=== PATIENT | female | born 1965 | race Caucasian/White ===

== ENCOUNTER → 2017-02-14 | Outpatient (CLI) | payer BC ==
[~2017-02-14] MED LIST: ALAVERT10 M1 PO; ATOXIMETIN-B1 CAP PO; ENABLEX7.5 MG PO; JOLESSA 30 MCG-1 TAB PO; NORCO 325 MG-51 TAB PO; ROLAIDS220 MG PO; SINGULAIR10 MG PO
== END ==
LOC: MC.RAD 09:09
DX: Z12.31 Encounter for screening mammogram for malignant neoplasm of breast (principal)

== ENCOUNTER → 2017-02-18 | Outpatient (CLI) | payer BC | LOC: MC.RAD 08:24 | DX: N63 Unspecified lump in breast (principal); N60.01 Solitary cyst of right breast ==

== ENCOUNTER → 2018-02-16 | Outpatient (CLI) | payer BC | LOC: MC.RAD 10:00 | DX: Z12.31 Encounter for screening mammogram for malignant neoplasm of breast (principal) ==

== ENCOUNTER → 2019-03-06 | Outpatient (CLI) | payer BC | LOC: MC.RAD 13:45 | DX: Z12.31 Encounter for screening mammogram for malignant neoplasm of breast (principal); Z90.10 Acquired absence of unspecified breast and nipple ==

== ENCOUNTER → 2019-12-04 | Outpatient (CLI) | payer BC | LOC: COL.VAS 13:15 | DX: M79.89 Other specified soft tissue disorders (principal); Z86.718 Personal history of other venous thrombosis and embolism ==

== ENCOUNTER → 2020-04-11 | Outpatient (CLI) | payer BC | LOC: MC.RAD 09:15 | DX: Z12.31 Encounter for screening mammogram for malignant neoplasm of breast (principal) ==

== ENCOUNTER 2021-02-10 06:56 | Day surgery (SDC) | payer BC ==
[~2021-02-10] VITALS: Ht 175.3 cm; Wt 62.3 kg
[2021-02-10] MEDS ORDERED: LIALDA 1.2 GM1.2 GM PO (07:48)
[2021-02-10] MEDS ORDERED: SYNTHROID0.05 MG/TA PO (07:48)
[2021-02-10] MEDS ORDERED: PEPCID 20MG TAB20 MG PO (07:50)
[2021-02-10] MEDS ORDERED: FLORAJEN A20 Billion PO (07:52)
[2021-02-10] MEDS ORDERED: CLARITIN-D 10 M1 T24 PO (07:52)
[2021-02-10] MEDS ORDERED: VITAMIN D31000 I1 PO (07:53)
[2021-02-10] MEDS ORDERED: VTAMINC250TA PO (07:54)
[2021-02-10] MEDS ORDERED: FLONASE SENSIM9.9 ML NS (07:55)
[2021-02-10 08:16] VITALS: BP 105/83; PULSE 81; TEMP 98.2
[2021-02-10] MEDS ORDERED: PROTONIX 40MG T40 MG PO (09:09)
[2021-02-10 09:15] VITALS: BP 94/61; PULSE 83; TEMP 97.4
[2021-02-10 09:30] VITALS: BP 103/75; PULSE 65
[2021-02-10 09:45] VITALS: BP 91/70; PULSE 64
--- NOTE | 2021-02-10 09:55 | NUR ---
0915 Pt returns from endo procedure via cart and COT[employer] Anton assist. Pt ambulates from cart to recliner with RN assist. Monitors on and alarms set. Call light within reach. Pt's in room. Pt alert and oriented. Pt denies pain and nausea. Pt requests water and crackers. 0930 Pt taking food and drink well. No complaints stated. 0950 Discharge instructions given to pt and . All questions answered to their satisfaction. Handed to them are a thank you card and discharge information. 0955 Pt transferred out of hospital via wheelchair and [place] assist to private vehicle driven by .
== END 2021-02-10 09:55 | disposition home or self-care (01) ==
LOC: SDCO 06:56
DX: K51.30 Ulcerative (chronic) rectosigmoiditis without complications (principal); K22.2 Esophageal obstruction; K29.30 Chronic superficial gastritis without bleeding; K21.00 Gastro-esophageal reflux disease with esophagitis, without bleeding; K26.9 Duodenal ulcer, unspecified as acute or chronic, without hemorrhage or perforation; J45.909 Unspecified asthma, uncomplicated; I82.409 Acute embolism and thrombosis of unspecified deep veins of unspecified lower extremity; E03.9 Hypothyroidism, unspecified; Z20.822 Contact with and (suspected) exposure to COVID-19; Z79.890 Hormone replacement therapy; Z79.899 Other long term (current) drug therapy
CPT/HCPCS: C1726; J2704; J3010; J7120

== ENCOUNTER → 2021-04-10 | Outpatient (CLI) | payer BC ==
[~2021-04-10] MED LIST changes: +CLARITIN-D 10 M1 T24 PO; +FLONASE SENSIM9.9 ML NS; +FLORAJEN A20 Billion PO; +LIALDA 1.2 GM1.2 GM PO; +PEPCID 20MG TAB20 MG PO; +PROTONIX 40MG T40 MG PO; +SYNTHROID0.05 MG/TA PO; +VITAMIN D31000 I1 PO; +VTAMINC250TA PO
== END ==
LOC: MC.RAD 14:00
DX: Z12.31 Encounter for screening mammogram for malignant neoplasm of breast (principal)

== ENCOUNTER → 2023-05-02 | Outpatient (CLI) | payer BC | LOC: CANSCHCLI → MC.RAD 11:26 | DX: Z12.31 Encounter for screening mammogram for malignant neoplasm of breast (principal) ==

== ENCOUNTER → 2024-03-21 | Outpatient (CLI) | payer BC | LOC: COL.RAD 07:21 | DX: Z13.6 Encounter for screening for cardiovascular disorders (principal); M79.89 Other specified soft tissue disorders; Z86.718 Personal history of other venous thrombosis and embolism ==

== ENCOUNTER → 2024-05-08 | Outpatient (CLI) | payer BC | LOC: MC.RAD 13:45 | DX: Z12.31 Encounter for screening mammogram for malignant neoplasm of breast (principal) ==